=== PATIENT | male | born 1995 | race African-American/Black ===

== ENCOUNTER 2017-03-26 16:44 | Emergency (ER) | payer OTHER ==
[2017-03-26 17:33] LABS: EOSINOPHILS # (AUTO) 0.1 10^3/uL (0.0-0.7); MONOCYTES # (AUTO) 0.6 10^3/uL (0.0-1.0)
--- NOTE | 2017-03-26 17:37 | XRAY Preliminary Report ---
Exam: XR CHEST 2 VIEW PA/LAT IMPRESSION: Normal 2-view chest radiography. [facility] SITE ID: [id number]
[2017-03-26 17:39] LABS: BASOPHILS % (AUTO) 0.8 %; EOSINOPHILS % (AUTO) 1.8 %; HCT - HEMATOCRIT 48.1 % (42.0-52.0); HGB - HEMOGLOBIN 15.1 g/dL (14.0-18.0); LYMPHOCYTES # (AUTO) 2.5 10^3/uL (1.5-3.5); MEAN CORPUSCULAR HEMOGLOBIN 23.4 pg (27.0-31.0); MEAN CORPUSCULAR HGB CONC 31.3 g/dL (32.0-36.0); MEAN CORPUSCULAR VOLUME 74.7 fL (80.0-94.0); MEAN PLATELET VOLUME 8.3 fL (7.4-11.4); MONOCYTES % (AUTO) 11.7 %; NEUTROPHILS % (AUTO) 37.7 %; NUCLEATED RED BLOOD CELLS AUTO 0.1 /100WBC; RED BLOOD COUNT 6.44 10^6/uL (4.70-6.10); RED CELL DISTRIBUTION WIDTH 13.6 % (12.0-15.0); UNCORRECTED WHITE BLOOD COUNT 5.2 x10^3/uL; WHITE BLOOD COUNT 5.2 x10^3/uL (4.8-10.8)
--- NOTE | 2017-03-26 17:40 | XRAY Report ---
EXAM: CHEST RADIOGRAPHY EXAM DATE: 03/26/2017 05:18 PM. CLINICAL HISTORY: Chest pain. COMPARISON: None. TECHNIQUE: 2 views. FINDINGS: Lungs/Pleura: Normal volumes. No focal consolidation or evidence of edema. No pleural effusion or pne umothorax. Mediastinum: Normal cardiomediastinal contour. Other: The bones are normal. IMPRESSION: Normal 2-view chest radiography. [facility] Referring Provider Line: [phone] SITE ID: [id number]
[2017-03-26 17:47] LABS: ALBUMIN/GLOBULIN RATIO 1.1 (1.0-2.2); CREATININE 1.1 mg/dL (0.6-1.2); POTASSIUM 3.6 mmol/L (3.5-5.0); TOTAL PROTEIN 8.3 g/dL (6.7-8.2)
--- NOTE | 2017-03-26 20:26 | ED Physician Documentation ---
History of Present Illness - Stated complaint Stated Complaint: CP - Chief complaint Chief Complaint: Cardiac - History obtained from History obtained from: Patient (pt was sent here for evaluation of palpitations. pt states that for the past several years and worse over the past several weeks/days that he has had palpitations. difficult to describe. sent here for evalution of an abnormal ECG by his PCM.) Review of Systems Ten Systems: 10 systems reviewed and negative Constitutional: denies: Fever, Chills Cardiac: reports: Palpitations. denies: Chest pain / pressure, Pedal edema, Calf pain Respiratory: denies: Dyspnea, Cough, Hemoptysis, Wheezing GI: denies: Abdominal Pain, Nausea, Vomiting, Constipation, Diarrhea Skin: denies: Rash, Lesions Musculoskeletal: denies: Back pain, Joint swelling Neurologic: denies: Generalized weakness, Focal weakness, Confused, Altered mental status, Headache, LOC PD PAST MEDICAL HISTORY - Past Medical History Past Medical History: No - Present Medications Home Medications: Ambulatory Orders Medication Instructions Recorded Confirmed No Known Home Medications [No 03/26/17 03/26/17 Known Home Medications] - Allergies Allergies/Adverse Reactions: Allergies Allergy/AdvReac Type Severity Reaction Status Date / Time No Known Drug Allergies Allergy Verified 03/26/17 16:56 - Social History Does the pt smoke?: No Smoking Status: Never smoker Does the pt drink ETOH?: No Does the pt have substance abuse?: No Substance Use and Type: Marijuana - Immunizations Immunizations are current?: Yes - POLST Patient has POLST: No PD ED PE NORMAL - Vitals Vital signs reviewed: Yes - General General: Alert and oriented X 3, No acute distress - HEENT HEENT: Atraumatic, Moist mucous membranes - Neck Neck: No adenopathy - Cardiac Cardiac: RRR, No murmur, No gallop, No rub - Respiratory Respiratory: No respiratory distress, Clear bilaterally - Abdomen Abdomen: Normal bowel sounds, Soft, Non tender, Non distended - Back Back: No CVA TTP, No spinal TTP - Derm Derm: Normal color, Warm and dry, No rash - Extremities Extremities: No deformity, No tenderness to palpate, No edema - Neuro Neuro: Alert and oriented X 3, Normal speech Eye Opening: Spontaneous Motor: Obeys Commands Verbal: Oriented GCS Score: 15 - Psych Psych: Normal mood, Normal affect Results - Vitals Vitals: Vital Signs - 24 hr 03/26/17 03/26/17 16:47 19:25 Temperature 36.7 C Heart Rate 77 64 Respiratory 16 17 Rate Blood Pressure 134/89 H 124/72 O2 Saturation 100 100 Oxygen O2 Source Room air - EKG (time done) 1651 Rate: Rate (enter#) Rhythm: NSR [place]: Normal Ischemia: T wave inversion Other comments: Other comments (ST elevationin V2 and V3 with flat T waves ) - Labs Labs: Laboratory Tests 03/26/17 03/26/17 03/26/17 17:20 17:20 17:20 WBC 5.2 RBC 6.44 H Hgb 15.1 Hct 48.1 MCV 74.7 L MCH 23.4 L MCHC 31.3 L RDW 13.6 Plt Count 261 MPV 8.3 Neut # 2.0 Lymph # 2.5 [place] # 0.6 Eos # 0.1 Baso # 0.0 Absolute Nucleated RBC 0.01 Nucleated RBC % 0.1 Sodium 139 Potassium 3.6 Chloride 101 Carbon Dioxide 28 Anion Gap 10.0 BUN 12 Creatinine 1.1 Estimated GFR (MDRD) 103 Glucose 93 Calcium 10.0 Total Bilirubin 1.0 AST 28 ALT 30 Alkaline Phosphatase 83 Troponin I < 0.04 Total Protein 8.3 H Albumin 4.4 Globulin 3.9 Albumin/Globulin Ratio 1.1 Lipase 20 L - Rads (name of study) CXR Radiology: Final report received PD MEDICAL DECISION MAKING - ED course Complexity details: d/w patient ED course: Pt with ECG from his primary care providers office that is concerning for Brugada. His ECG here is somewhat concerning for this but with his prior ECG and his symptoms I believe that he needs an EP study. After discussion with the pt he states that several years ago in [place] he was told that he may have Brugada but doesn't appear to have had a full work up. Discussed case with Dr Thomas at [facility] about the ECg and the concerns and will transfer the pt there for further work up. pt is stable for transport. Departure - Departure Disposition: 02 Transfer Acute Care Hosp Clinical Impression: Brugada syndrome Condition: Good
[2017-03-26 21:03] VITALS: BP 124/78
== END 2017-03-26 21:35 | disposition short-term general hospital (02) ==
LOC: ED 16:44
DX: I49.8 Other specified cardiac arrhythmias (principal)
CPT/HCPCS: 71020; 80053; 83690; 84484; 85025; 93005; 99284; 99285

== ENCOUNTER 2017-03-26 21:30 | Outpatient (CLI) | payer OTHER | END 2017-03-26 21:31 | disposition short-term general hospital (02) | LOC: EMS 21:30 | PROVIDERS: ATTEND Surgery | DX: I49.8 Other specified cardiac arrhythmias (principal) | CPT/HCPCS: A0425; A0426 ==

== ENCOUNTER 2018-09-17 15:12 | Outpatient (CLI) | payer OTHER ==
--- NOTE | 2018-09-18 00:03 | XRAY Report ---
Reason: OTHER INTERVERTEBRAL DISC DEGENERATION, LUMBAR REG Procedure Date: 09/17/2018 Accession Number: [id number] / [id number] Procedure: XR - Lumbar Spine 2 View CPT Code: FULL RESULT: EXAM: LUMBOSACRAL SPINE RADIOGRAPHY EXAM DATE: 09/17/2018 03:36 PM. CLINICAL HISTORY: OTHER INTERVERTEBRAL DISC DEGENERATION, LUMBAR REG. COMPARISONS: None. TECHNIQUE: 3 views. FINDINGS: Alignment: Normal. No spondylolisthesis or scoliosis. Bones: Normal mineralization. No fractures or bone lesions. Disks: Normal. Disk heights are maintained. Facets: No degenerative changes. Sacroiliac Joints: Unremarkable. Soft Tissues: Normal. The visualized bowel gas pattern is normal. IMPRESSION: Negative lumbar spine radiography. [facility]
== END 2018-09-17 15:13 | disposition home or self-care (01) ==
LOC: DI 15:12
PROVIDERS: ATTEND Specialist
DX: M51.36 Other intervertebral disc degeneration, lumbar region (principal)
CPT/HCPCS: 72100